=== PATIENT | female | born 1940 | race African-American/Black ===

== ENCOUNTER 2017-05-29 18:19 | Emergency (ER) | payer OTHER, MEDICARE ==
[2017-05-29 18:51] LABS: ADD MAN DIFF? NO
[2017-05-29 18:55] LABS: BASO # 0.1 x10^3/uL (0.0-0.2); BASO % 1 % (0-3); EOS % 2 % (0-3); HEMATOCRIT 41.7 % (36.0-47.0); HEMOGLOBIN 13.5 g/dL (12.0-15.5); LYMPH # 2.4 x10^3/uL (1.0-4.8); LYMPH % 24 % (24-48); MEAN CORPUSCULAR HEMOGLOBIN 28 pg (25-35); MEAN CORPUSCULAR HGB CONC 32 g/dL (31-37); MEAN CORPUSCULAR VOLUME 87 fL (79-100); MONO % 5 % (0-9); NEUT % 69 % (31-73); PLATELET COUNT 276 x10^3/uL (140-400); RED CELL DISTRIBUTION WIDTH 14.8 % (11.5-14.5); WHITE BLOOD COUNT 10.1 x10^3/uL (4.0-11.0)
[2017-05-29] MEDS: LIDO:MAALOX:DONNATAL 1:1:1 15 ML SINGLE DOSE SWSW (18:56)
[2017-05-29 19:40] LABS: ANION GAP 13 (6-14); BLOOD UREA NITROGEN 15 mg/dL (7-20); BUN/CREATININE RATIO 21 (6-20); CALCIUM 8.5 mg/dL (8.5-10.1); CARBON DIOXIDE 24 mmol/L (21-32); CHLORIDE 109 mmol/L (98-107); CREATININE 0.7 mg/dL (0.6-1.0); GFR 98.7; GLUCOSE 109 mg/dL (70-99); POTASSIUM 3.9 mmol/L (3.5-5.1); SODIUM 146 mmol/L (136-145)
[2017-05-29 19:46] LABS: ALBUMIN 3.5 g/dL (3.4-5.0); ALK PHOS 85 U/L (46-116); ALT (SGPT) 13 U/L (14-59); AST (SGOT) 22 U/L (15-37); TOTAL BILIRUBIN 0.5 mg/dL (0.2-1.0)
[2017-05-29 19:48] LABS: TROPONINI < 0.017 ng/mL (0.000-0.055)
== END 2017-05-29 20:22 | disposition home or self-care (01) ==
LOC: ER 18:19
DX: R14.2 Eructation (principal); Z90.49 Acquired absence of other specified parts of digestive tract; M19.90 Unspecified osteoarthritis, unspecified site
CPT/HCPCS: 80053; 83690; 84484; 85025; 93005; 99285-25

== ENCOUNTER → 2017-10-11 | Outpatient (CLI) | payer OTHER, MEDICARE | END | disposition home or self-care (01) | LOC: PNCL 10:04 | DX: M16.11 Unilateral primary osteoarthritis, right hip (principal); M46.1 Sacroiliitis, not elsewhere classified; I10 Essential (primary) hypertension | CPT/HCPCS: 99214 ==

== ENCOUNTER → 2017-10-25 | Outpatient (CLI) | payer OTHER, MEDICARE ==
[~2017-10-25] MED LIST: BUPIVACAINE MPF 0.25% 10 ML VIAL.; IOHEXOL 180 MG/ML 10 ML VIAL.; LIDOCAINE 1% PF 2 ML VIAL.; methylPREDNISolone ACETATE 80 MG/ML VIAL.
== END | disposition home or self-care (01) ==
LOC: PNCL 08:52
DX: M46.1 Sacroiliitis, not elsewhere classified (principal); M16.11 Unilateral primary osteoarthritis, right hip
CPT/HCPCS: 27096; 77002; G0260; J1040; J3490; Q9965

== ENCOUNTER → 2018-07-16 | Outpatient (CLI) | payer MEDICARE, OTHER ==
[2017-08-03 15:00] VITALS: BP 111/48
[~2018-07-16] MED LIST changes: +ACET500T68 PO; +AMLO10TA8 PO; +AMLO5TAB10 PO; +BISO1TAB44 PO; +BISO1TAB7 PO; -BUPIVACAINE MPF 0.25% 10 ML VIAL.; +CHOL100013 PO; +IBUP200C9 PO; -IOHEXOL 180 MG/ML 10 ML VIAL.; -LIDOCAINE 1% PF 2 ML VIAL.; +OXYC5CAP PO; +WARF3TAB50 PO; -methylPREDNISolone ACETATE 80 MG/ML VIAL.
--- NOTE | 2018-07-16 12:16 | PAIN ---
DATE OF SERVICE: 07/16/2018 PROGRESS NOTE FOR PAIN CLINIC DIAGNOSES: 1. Bilateral sacroiliitis. 2. Right hip joint pain with primary osteoarthritis. HISTORY OF PRESENT ILLNESS: The patient is a 78-year-old female who returns for followup status post left-sided sacroiliac joint injection on 10/25/2017. The patient did very well with near 100% improvement, which is maintained to this day. The patient reports the right side; however, is becoming very painful, very similar to the left side, tender with walking, standing, change in positions, sitting for prolonged periods, awakens her from sleep at night about every 5-6 hours, but not every night. The patient reports initially she is doing very well. She is walking greater distances, doing activities at home as well as traveling and household activities with much greater ease and comfort. The patient reports that over the past month or so, the pain began to return in the low back, but on the right side radiating to the posterior gluteus very minorly. The patient reports no radiation to the lower extremity significantly, rates her pain as 8 on a scale of 10 at its worst, 7 on average, 5 at its least and is aching and tight pain on the right side, which is described as tender. The patient notes this is most when she is getting up from a seated position to standing and also from standing to sitting. The patient reports again it occasionally wakens her from sleep, but not every night. The patient reports no new motor or sensory deficits, no bowel or bladder incontinence or other complaints. PHYSICAL EXAMINATION: VITAL SIGNS: The patient's blood pressure 143/84, pulse 83, respirations are 18, temperature is 98.1 degrees Fahrenheit, weight is 146 pounds. GENERAL: The patient is awake, alert, oriented, appropriate, very pleasant demeanor. HEENT: Head shows normocephalic, atraumatic. The patient wears eyeglasses. Extraocular movements are intact and symmetrical. Oral cavity: Mucous membranes moist and pink. Dentition is intact. NECK: Shows anterior throat supple without palpable lymphadenopathy noted. Swallow reflex is symmetrical. CHEST: Shows normal with inspection. Breath sounds clear to auscultation bilaterally. HEART: Shows S1, S2 clear. No murmurs auscultated. ABDOMEN: Soft, nontender, nondistended. No palpable organomegaly is noted. No rebound or guarding demonstrated. BACK: The patient's back shows spine grossly in the midline, normal appearing thoracic kyphosis and some minor flattening of lumbar lordotic curvature. Lumbar paraspinous muscle shows symmetrical on inspection, on palpation shows some mild tenderness only diffusely in the lower lumbar distribution. The patient has full rotational motion of lumbar spine both laterally as well as extension and flexion without difficulty or pain reported. The patient's spinous processes are nontender with palpation. On palpation over the sacroiliac regions, the left side is nontender. The right side; however, is significantly tender with palpation over the posterior superior iliac spine as well as inferior to this into the sacroiliac region on the right side with very tender pain with deep palpation without radiation. EXTREMITIES: Lower extremities show deep tendon reflexes at 1+ in the patellar and tendo calcaneus tendons. Motor exam is 5/5 with dorsiflexion, extension, quadriceps and hamstring flexion. Peripheral pulses are 1+ posterior tibia. No peripheral edema is noted bilaterally. The patient does have a positive Gaenslen's maneuver on the right side with posterior displacement of the leg and external rotation with significant pain in the posterior hip and sacroiliac region. Left side is negative. Kwame's maneuver is mildly positive on the right, but negative on the left as well. PLAN: Options were discussed with the patient. The patient's old chart was reviewed as her current medication regimen updated. Current review of systems updated today as well. We will preauthorize the patient for a right-sided sacroiliac joint injection because of significant pain over the sacroiliac joint as well as positive Gaenslen's sign on the right side. The patient will be given Medrol Dosepak in the meantime. We will wait for preauthorization. Once this is obtained, we will have the patient return in approximately 1 week to plan on right sacroiliac joint injection with fluoroscopic guidance at that time. SZUIE MAJANO MD DR: KESHAWN/liz JOB#: [id number] / [id number]
== END | disposition home or self-care (01) ==
LOC: PNCL 08:53
PROVIDERS: ATTEND Anesthesiology
DX: M16.11 Unilateral primary osteoarthritis, right hip (principal); M46.1 Sacroiliitis, not elsewhere classified
CPT/HCPCS: G0463

== ENCOUNTER → 2018-12-10 | Outpatient (CLI) | payer OTHER, MEDICARE ==
[2017-08-03 15:00] VITALS: BP 111/48
[~2018-12-10] MED LIST changes: -OXYC5CAP PO; -WARF3TAB50 PO
[2018-12-10 09:11] LABS: BILIRUBIN,URINE NEGATIVE (NEG); CLARITY,URINE CLEAR; COLOR,URINE YELLOW; NITRITE,URINE NEGATIVE (NEG); PH,URINE 5.5; PROTEIN,URINE NEGATIVE (NEG-TRACE); UROBILINOGEN,URINE 0.2 mg/dL (0.2 mg/dL)
[2018-12-10 09:19] LABS: BACTERIA,URINE FEW /HPF (0-FEW); RBC,URINE OCC /HPF (0-2); SQUAMOUS EPITHELIAL CELL,UR FEW /LPF; WBC,URINE OCC /HPF (0-4)
[2018-12-10 10:21] LABS: PROTHROMBIN TIME PATIENT 12.6 SEC (11.7-14.0)
--- NOTE | 2018-12-10 14:04 | RAD ---
Chest radiograph 12/10/2018 8:18 AM INDICATION: Hypertension. Preoperative evaluation for placement of the right hip. COMPARISON: August 02, 2017 TECHNIQUE: Frontal and lateral views of the chest are provided. FINDINGS: The cardiomediastinal silhouette is within normal limits. Stable elevation the right hemidiaphragm. Minimal blunting of the left costophrenic angle may represent pleural thickening versus trace pleural effusion, stable. There is no pulmonary vascular congestion. There is no pneumothorax. The lungs are clear. No significant osseous abnormality is identified. IMPRESSION: Persistent elevation the right hemidiaphragm. Lungs are otherwise clear. Blunting of left costophrenic angle may represent pleural thickening versus trace pleural effusion, stable. Electronically signed by: Bonnie Bal MD (12/10/2018 2:01 PM) [id number]
== END | disposition home or self-care (01) ==
LOC: SURGPAT 13:12
PROVIDERS: ATTEND Orthopaedic Surgery
DX: Z01.818 Encounter for other preprocedural examination (principal); M16.11 Unilateral primary osteoarthritis, right hip; I10 Essential (primary) hypertension
CPT/HCPCS: 36415; 71046; 81001; 82306; 85610; 85651; 85730; 87641

== ENCOUNTER 2018-12-25 07:52 | Inpatient (IN) | payer MEDICARE, OTHER ==
[~2018-12-25] VITALS: Ht 160 cm; Wt 64.0 kg
[2018-12-25] VITALS (7 sets, daily range): BP systolic 115–163; BP diastolic 55–75
[~2018-12-25 07:52] MED LIST changes: +ACETAMINOPHEN 500 MG TABLET PO PRN; +HYDROmorphone 2 MG/ML VIAL IV PRN; +IV RINGERS,LACTATED 1000ML 1,000 ML IV SCH; +LIDOCAINE 1% PF 2 ML VIAL. ID PRN; +MORPHINE SULFATE 2 MG/ML VIAL. IV PRN; +MORPHINE SULFATE 5 MG, KETOROLAC 30MG VIAL 30 MG, ROPIVacaine 0.5% PF 60 ML, EPINEPHrin... INT ART ONE; +ONDANSETRON PF 4 MG/2 ML VIAL. IV PRN; +PROCHLORPERAZINE 10 MG/2 ML VIAL. IV PRN; +TRANEXAMIC ACID 1,000 MG in IV NS 50ML -- 1ST BAG INJ ONE; +TV=100ml MORPHINE 5 MG, KETOROLAC 30 MG, ROPIVacaine 0.5% PF 60 ML, EPINEPH... INT ART ONE; +VANCOMYCIN 1GM IVPB FOR OMNI 250 ML IV PRN; +fentaNYL PF VIAL 100 MCG/2 ML VIAL IV PRN
[2018-12-25] MEDS ORDERED: TRANEXAMIC ACID 1,000 MG in IV NS 50ML -- 2ND BAG INJ ONE (08:00)
--- NOTE | 2018-12-25 08:40 | NUR ---
PT STATED SHE COMPLETED THE MRSA PROTOCOL 12/24/18.
[2018-12-25] MEDS: MELOXICAM 7.5 MG TABLET PO PRN ×2 (09:03→15:16)
[2018-12-25 09:22] LABS: PROTHROMBIN TIME PATIENT 13.1 SEC (11.7-14.0)
[2018-12-25] MEDS ORDERED: ROCURONIUM 50 MG/5 ML VIAL. ONE (09:42)
[2018-12-25] MEDS ORDERED: PROPOFOL 20 ML IV ONE (09:43)
[2018-12-25] MEDS ORDERED: LIDOCAINE 2% PF 5 ML VIAL. ONE (09:43)
[2018-12-25] MEDS ORDERED: DEXAMETHASONE SOD PHOS 4 MG/ML VIAL ONE ×2 (09:43)
[2018-12-25] MEDS ORDERED: PHENYLEPHRINE in 0.9% NACL PF 1 MG/10 ML SYRINGE. IV ONE (09:43)
[2018-12-25] MEDS ORDERED: ONDANSETRON PF 4 MG/2 ML VIAL. ONE (09:43)
[2018-12-25] MEDS ORDERED: SEVOFLURANE 61 TO 120 MINUTES. IH ONE (09:43)
[2018-12-25] MEDS ORDERED: fentaNYL PF VIAL 100 MCG/2 ML VIAL ONE (10:27)
--- NOTE | 2018-12-25 11:31 | HP ---
ADMIT DATE: 12/25/2018 CHIEF COMPLAINT: Right hip pain and DJD. HISTORY OF PRESENT ILLNESS: The patient has had right groin and thigh pain many months in duration, severely affecting her activities of daily living and some leg pain that resolved with an injection at the Pain Clinic; however, her hip continues to be very severely limiting for her. PAST MEDICAL HISTORY: Hypertension. SURGICAL HISTORY: Appendectomy and tubal ligation. FAMILY HISTORY: No family history noted. SOCIAL HISTORY: Denies smoking, alcohol or drug use. MEDICATIONS: Include vitamin D, Ziac, amlodipine and Cavour. ALLERGIES: She has no known drug allergies. REVIEW OF SYSTEMS: No recent health problems since her last clinic visit. She denies specifically any chest pain, shortness of breath, fever, chills, focal weakness, numbness, tingling, radiating pain, weight loss or change in bowel or bladder habits. PHYSICAL EXAMINATION: VITAL SIGNS: Per admission sheet. HEENT: Atraumatic, normocephalic. HEART: Regular rate and rhythm. LUNGS: Clear to auscultation bilaterally. ABDOMEN: Benign. EXTREMITIES: Examination of the right hip reveals decreased range of motion in all planes and pain on extremes of motion of the hip on the leg length discrepancy or instability. Minimal tenderness over the trochanteric bursa. Normal examination of the contralateral hip, bilateral knees and ankles. IMAGING STUDIES: Include AP pelvis x-rays of right hip, which show [id number] degenerative change in the right hip. ASSESSMENT: Right hip pain and osteoarthritis. TREATMENT PLAN: I previously discussed with her the x-ray findings. She has been unresponsive to nonoperative management including walking with a cane and limiting her activities. She wishes to pursue more definitive treatment to get back her desired activity level. We had previously discussed and reviewed today; risks, benefits, postoperative course and recovery of a total hip arthroplasty including the possibility of infection, instability, leg length inequality, nerve or blood vessel damage, continued pain, medical or other anesthetic complications among others including weakness. She wishes to proceed with total hip arthroplasty, which includes a [facility] admission to follow. CARMELO COVARRUBIAS MD DR: CLIFF/liz JOB#: [id number] / [id number]
[2018-12-25] MEDS ORDERED: GLYCOPYRROLATE 1 MG/5 ML VIAL. ONE (12:08)
[2018-12-25] MEDS ORDERED: NEOSTIGMINE METHYLSULFATE 5 MG/5 ML SYRINGE. ONE (12:08)
[2018-12-25] MEDS ORDERED: ZOLPIDEM 5 MG TABLET. PO PRN (12:45)
[2018-12-25] MEDS ORDERED: 0.9 % SODIUM CHLORIDE 10 ML DISP.SYRIN. IV PRN (12:45)
[2018-12-25] MEDS ORDERED: DEXTROSE 50% 25 GM / 50ML DISP.SYRIN. IV PRN (12:45)
[2018-12-25] MEDS ORDERED: MORPHINE SULFATE 2 MG/ML VIAL. IV PRN (12:45)
[2018-12-25] MEDS ORDERED: PROCHLORPERAZINE 5 MG TABLET. PO PRN (12:45)
[2018-12-25] MEDS ORDERED: diphenhydrAMINE 50 MG/ML VIAL IV PRN (12:45)
[2018-12-25] MEDS ORDERED: CALCIUM CARBONATE 500 MG TAB.CHEW PO PRN (12:45)
[2018-12-25] MEDS ORDERED: fentaNYL PF VIAL 100 MCG/2 ML VIAL IV PRN (12:45)
--- NOTE | 2018-12-25 12:50 | PDOC4 ---
Operative Note Operative Note Date of surgery: 12/25/2018 Preoperative diagnosis: Degenerative joint disease right hip Postoperative diagnosis: Same Operative procedure: Right total hip arthroplasty Surgeon: Juaquin Assist: Mary Anesthesia: Gen. Estimated blood loss: 200 mL Complications: None Specimens: Femoral head to pathology Drains: Hemovac drain and intra-articular catheter Operative indications: Please see my detailed history and physical note from today for detailed operative indications and indicate that we also reviewed the possibility of leg length discrepancy fracture nerve or blood vessel damage instability premature wear or loosening continued pain medical or other anesthetic consultations among others she agrees to proceed with surgical evaluation and treatment Operative procedure: Patient was identified procedure verified patient placed in the supine position on the operating table. After adequate amounts of general anesthesia were administered she was placed in the decubitus position right side up all bony prominences were well padded and stabilized with the Stulberg hip positioner. The right hip was then prepped and draped in standard sterile fashion. After timeout was performed patient procedure identified and verified a curvilinear incision was made over the greater trochanter consisting of a posterior approach to the hip iliotibial band and gluteal fascia were divided in line with their fibers Charnley retractor was placed external rotators were d ivided at their insertion and hip capsule was split in a T fashion. Hip was dislocated and femoral neck cut was made with the assistance of the alignment guide femoral head was noted to be severely arthritic no cartilage noted on the femoral head or acetabulum femoral head was sized at approximately a size 52. Labrum was excised no soft tissue noted and no foveal space was remaining. Successive size reaming carried out up to a size 48 the rim was touched with a size 49 and a size 53 hole hemispherical coated sticktight cup was impacted into place in proper version a single screw was placed superiorly with excellent bite and a standard 32 mm polyethylene liner was impacted into place the femur was then drilled and broached with a size 12 standard offset broach selected and initially a +0 head trial fit which gave excellent stability nondenominational of leg length and offset. Trial components were removed thorough irrigation carried out normal saline solution with pulse lavage and a size 12 standard offset synergy p orous coated stem was impacted into place in proper version based on the positioning of the implant trialing was carried out with a +4 which again gave full range of motion excellent stability and offset and stability noted to about 60 external rotation at 90 hip flexion trial head was removed and a cobalt- chromium 32 mm +4 head was impacted into place to engage the Torre taper hip was reduced hip capsule repaired with #2 Choudhury suture Hemovac drain and pain catheter were placed pain catheter mixture was injected throughout the joint capsule and iliotibial band and gluteal fascia were closed with Ethibond suture and reinforced with running #1 PDS strata fix subcutaneous closure with buried Vicryl suture subcuticular closure with 3-0 Monocryl strata fix area gaby dressing was placed patient was returned to recovery room in stable condition having tolerated procedure well. Mary lamassistant tennis professional was present for the procedure and was present for the prepping draping assisted in retraction and skin closure CARMELO COVARRUBIAS MD Dec 25, 2018 12:50
[2018-12-25] MEDS: fentaNYL PF VIAL 100 MCG/2 ML VIAL IV PRN ×2 (12:52→13:45)
--- NOTE | 2018-12-25 13:29 | RAD ---
Examination: HIP RIGHT 1 VIEW WITH PELVIS History: Postoperative Comparison/Correlation: None Findings: Frontal view pelvis was obtained by portable technique crosstable portable lateral view of the right hip was obtained. Patient has a tubing is noted at the lateral aspect of the proximal right femur with soft tissues. Right hip joint prosthesis is intact with no loosening. Soft tissue swelling and gas noted lateral to the right hip in this postoperative patient. Impression: Right total hip joint arthroplasty is intact. Postoperative findings. No acute fracture. Electronically signed by: Mike Diez MD (12/25/2018 1:26 PM) [id number]
[2018-12-25] MEDS ORDERED: IV NORMAL SALINE 1000ML BAG 1,000 ML IV SCH (15:00)
--- NOTE | 2018-12-25 15:18 | NUR ---
1425 Received from PACU per bed, alert/oriented, dressing to right hip clean, dry & intact, MONET dressing, IAC, Hemovac in place, bilateral CLEMENTE hose & SCD in place, states uncomfortable but denied pain, repositioned in bed, offered to get up in chair but declined, HOB elevated, pillow placed in between legs, oriented to surroundings, call light in reach, side rails up x2, see assessment, family at bedside
[2018-12-25] MEDS: ACETAMINOPHEN 500 MG TABLET PO SCH ×2 (15:24→21:05)
[2018-12-25] MEDS: amLODIPine BESYLATE 5 MG TABLET PO SCH (16:00)
[2018-12-25] MEDS ORDERED: WARFARIN 7.5 MG TABLET. PO ONE (16:00)
[2018-12-25] MEDS: FERROUS SULFATE 325 MG TABLET. PO SCH (16:44)
[2018-12-25] MEDS: CHOLECALCIFEROL (VITAMIN D3) 1,000 UNIT TABLET PO SCH (16:45)
[2018-12-25] MEDS: ONDANSETRON PF 4 MG/2 ML VIAL. IV SCH (17:56)
[2018-12-25] MEDS: ONDANSETRON ODT 4 MG TAB.RAPDIS. PO SCH (17:56)
--- NOTE | 2018-12-25 17:56 | NUR ---
Zofran held, no nausea or vomiting noted
[2018-12-25] MEDS: traMADol 50 MG TABLET PO SCH (18:29)
[2018-12-25] MEDS: KETOROLAC 30MG VIAL 30 MG, BUPIVACAINE MPF 0.25% 20 ML, EPINEPHrine 0.5 MG in TOTAL VOL... INT ART SCH (18:31)
[2018-12-25] MEDS: GABAPENTIN 100 MG CAPSULE. PO SCH (21:05)
[2018-12-25] MEDS ORDERED: VANCOMYCIN 1 GM in IV NORMAL SALINE 250ML 250 ML IV ONE (23:00)
--- NOTE | 2018-12-26 | NUR ---
Patient denies nausea, no vomiting noted, Patient denies pain. Patient refusing tramadol and Zofran.
[2018-12-26] MEDS: ACETAMINOPHEN 500 MG TABLET PO SCH ×4 (02:10→20:56)
--- NOTE | 2018-12-26 02:20 | NUR ---
Patient denies pain. Refusing scheduled 0300 Tylenol. Offered patient to use restroom. Patient refused. Patient states "I don't have to ho, I'll go at 0530."
[2018-12-26 02:22] VITALS: BP 113/70
[2018-12-26 04:07] LABS: HEMATOCRIT 31.7 % (36.0-47.0); HEMOGLOBIN 10.3 g/dL (12.0-15.5)
[2018-12-26 04:19] LABS: PROTHROMBIN TIME PATIENT 15.3 SEC (11.7-14.0)
[2018-12-26] MEDS: KETOROLAC 30MG VIAL 30 MG, BUPIVACAINE MPF 0.25% 20 ML, EPINEPHrine 0.5 MG in TOTAL VOL... INT ART SCH (05:48)
[2018-12-26] MEDS: traMADol 50 MG TABLET PO SCH ×5 (05:48→23:48)
[2018-12-26] MEDS: ONDANSETRON PF 4 MG/2 ML VIAL. IV SCH ×3 (05:49→12:00)
[2018-12-26] MEDS: ONDANSETRON ODT 4 MG TAB.RAPDIS. PO SCH ×3 (05:49→12:00)
[2018-12-26] MEDS ORDERED: MAGNESIUM HYDROXIDE 2,400 MG/30 ML ORAL.SUSP. PO PRN (06:00)
[2018-12-26 06:35] VITALS: BP 97/43
--- NOTE | 2018-12-26 07:24 | PDOC ---
ORTHO PROGRESS NOTES Subjective Patient sitting up in chair at bedside with no complaint of pain. Post-op Day: 1 Procedure R FREEMAN Vitals Vital Signs Date Time Temp Pulse Resp B/P (MAP) Pulse Ox O2 Delivery O2 Flow Rate FiO2 12/26/18 06:50 Room Air 12/26/18 06:35 98.1 71 18 97/43 (61) 95 98.1 12/25/18 17:55 2.0 Labs Laboratory Tests Test 12/25/18 08:30 12/26/18 03:30 Prothrombin Time 13.1 SEC (11.7-14.0) 15.3 SEC (11.7-14.0) Prothromb Time International Ratio 1.0 (0.8-1.1) 1.2 (0.8-1.1) Activated Partial Thromboplast Time 30 SEC (24-38) Hemoglobin 10.3 g/dL (12.0-15.5) Hematocrit 31.7 % (36.0-47.0) Mean Corpuscular Hemoglobin Concent 33 g/dL (31-37) Laboratory Tests Test 12/25/18 08:30 12/26/18 03:30 Prothrombin Time 13.1 SEC (11.7-14.0) 15.3 SEC (11.7-14.0) Prothromb Time International Ratio 1.0 (0.8-1.1) 1.2 (0.8-1.1) Activated Partial Thromboplast Time 30 SEC (24-38) Hemoglobin 10.3 g/dL (12.0-15.5) Hematocrit 31.7 % (36.0-47.0) Mean Corpuscular Hemoglobin Concent 33 g/dL (31-37) Notes awake and alert Assessment and Plan POD # 1 S/P R FREEMAN moving toes and feet without restriction motor and sensory intact distally dressing dry and intact calf soft and nontender begin PT today RUSTAM MESSER APRN Dec 26, 2018 07:24
[2018-12-26 08:00] VITALS: BP 94/47
[2018-12-26] MEDS: FERROUS SULFATE 325 MG TABLET. PO SCH ×2 (08:04→17:19)
[2018-12-26] MEDS: MULTIVITAMIN with MINERAL TABLET. PO SCH (08:05)
[2018-12-26] MEDS: SENNOSIDES/DOCUSATE 8.6/50MG TABLET. PO SCH (08:05)
[2018-12-26] MEDS: CHOLECALCIFEROL (VITAMIN D3) 1,000 UNIT TABLET PO SCH (08:05)
[2018-12-26] MEDS: GABAPENTIN 100 MG CAPSULE. PO SCH ×2 (08:10→21:00)
[2018-12-26] MEDS: amLODIPine BESYLATE 5 MG TABLET PO SCH (09:00)
--- NOTE | 2018-12-26 10:29 | NUR ---
Pharmacy Warfarin Dosing Note S:Pharmacy consulted to assist with anticoagulation therapy started 12/25/18 with target INR: 1.6 - 2.5 O:EULA CHAVEZ is a 78 year old F with FREEMAN LABS: Last INR: 1.2 Last HGB: 10.3 Last HCT: Last PLT: Last dose of 7.5 mg given on 12/25/18 at 1700 Previous Regimen: Vitamin K given: Drug Interaction Changes: Ongoing Drug Interactions: A:INR of 1.2 is below desired range. Target range for this patient is: 1.6 - 2.5 P: Warfarin dose: 5 mg Today at 1600 Bridge Therapy: Next INR due IN AM Pharmacy anticoagulation service will continue to follow. JULIANA GARDNER RPH, 12/26/18 [id number]
[2018-12-26 11:00] VITALS: BP 105/57
[2018-12-26] MEDS ORDERED: ONDANSETRON ODT 4 MG TAB.RAPDIS. PO PRN (12:00)
[2018-12-26] MEDS ORDERED: ONDANSETRON PF 4 MG/2 ML VIAL. IV PRN (12:00)
[2018-12-26 15:00] VITALS: BP 116/60
[2018-12-26] MEDS ORDERED: BISACODYL 10 MG SUPP.RECT. PR PRN (16:00)
[2018-12-26] MEDS ORDERED: WARFARIN 5 MG TABLET. PO ONE (16:00)
[2018-12-26 18:30] VITALS: BP 98/50
[2018-12-27] MEDS: ACETAMINOPHEN 500 MG TABLET PO SCH ×4 (02:51→21:00)
[2018-12-27] MEDS: traMADol 50 MG TABLET PO SCH ×3 (05:50→17:31)
[2018-12-27 06:03] VITALS: BP 114/55
[2018-12-27 06:10] LABS: HEMATOCRIT 29.4 % (36.0-47.0); HEMOGLOBIN 9.8 g/dL (12.0-15.5)
[2018-12-27 06:19] LABS: PROTHROMBIN TIME PATIENT 20.2 SEC (11.7-14.0)
[2018-12-27] MEDS: FERROUS SULFATE 325 MG TABLET. PO SCH ×2 (08:31→17:31)
[2018-12-27] MEDS: SENNOSIDES/DOCUSATE 8.6/50MG TABLET. PO SCH (08:31)
[2018-12-27] MEDS: MULTIVITAMIN with MINERAL TABLET. PO SCH (08:31)
[2018-12-27] MEDS: CHOLECALCIFEROL (VITAMIN D3) 1,000 UNIT TABLET PO SCH (08:31)
[2018-12-27] MEDS: GABAPENTIN 100 MG CAPSULE. PO SCH ×2 (08:33→20:52)
[2018-12-27] MEDS: amLODIPine BESYLATE 5 MG TABLET PO SCH (09:00)
--- NOTE | 2018-12-27 09:36 | NUR ---
am care completed. states that she is more painful this am; "stiff" she remains normotensive; norvasc held at this time. will recheck blood pressure.
[2018-12-27] MEDS: oxyCODONE IR 5 MG TABLET PO PRN ×2 (10:15→20:54)
[2018-12-27 11:21] VITALS: BP 93/40
--- NOTE | 2018-12-27 11:47 | PDOC ---
PROGRESS NOTES Subjective Subjective Problems overnight: Doing much better than before surgery minimal pain some soreness in the hip as expected no other complaints Objective Vital Signs Vital Signs Date Time Temp Pulse Resp B/P (MAP) Pulse Ox O2 Delivery O2 Flow Rate FiO2 12/27/18 11:21 98.0 83 16 93/40 (57) 96 Room Air 98.0 12/25/18 17:55 2.0 Physical Exam Timmy dressing clean dry and intact leg lengths equal distal neurovascular status intact good stability Labs Laboratory Tests Test 12/26/18 03:30 12/27/18 05:33 Hemoglobin 10.3 g/dL (12.0-15.5) 9.8 g/dL (12.0-15.5) Hematocrit 31.7 % (36.0-47.0) 29.4 % (36.0-47.0) Mean Corpuscular Hemoglobin Concent 33 g/dL (31-37) 33 g/dL (31-37) Prothrombin Time 15.3 SEC (11.7-14.0) 20.2 SEC (11.7-14.0) Prothromb Time International Ratio 1.2 (0.8-1.1) 1.8 (0.8-1.1) Laboratory Tests Test 12/27/18 05:33 Hemoglobin 9.8 g/dL (12.0-15.5) Hematocrit 29.4 % (36.0-47.0) Mean Corpuscular Hemoglobin Concent 33 g/dL (31-37) Prothrombin Time 20.2 SEC (11.7-14.0) Prothromb Time International Ratio 1.8 (0.8-1.1) Imaging Postop images right hip show well-placed total hip arthroplasty Assessment Assessment POD# [2], S/P [right total hip arthroplasty] Plan Plan of Care Continue mobilize as tolerated weightbearing as tolerated standard total hip precautions Coumadin anticoagulation, anticipate likely home with home health tomorrow CARMELO COVARRUBIAS MD Dec 27, 2018 11:47
--- NOTE | 2018-12-27 11:56 | NUR ---
Pharmacy Warfarin Dosing Note S:Pharmacy consulted to assist with anticoagulation therapy started 12/25/18 with target INR: 1.6 - 2.5 O:EULA CHAVEZ is a 78 year old F with FREEMAN LABS: Last INR: 1.8 Last HGB: 9.8 Last HCT: 29.0 Last PLT: Last dose of 5 mg given on 12/26/18 at 1700 Previous Regimen: Vitamin K given: Drug Interaction Changes: Ongoing Drug Interactions: A:INR of 1.8 is within desired range. Target range for this patient is: 1.6 - 2.5 P: Warfarin dose: 3 mg Today at 1600 Bridge Therapy: Next INR due IN AM Pharmacy anticoagulation service will continue to follow. JULIANA GARDNER RPH, 12/27/18 [id number]
--- NOTE | 2018-12-27 15:16 | NUR ---
violette tolerated both rehab sessions well. she has rated her pain 3-4. she is on oral medications and tolerating well.
[2018-12-27] MEDS ORDERED: WARFARIN 3 MG TABLET. PO ONE (16:00)
[2018-12-27 18:37] VITALS: BP 105/55
[2018-12-28] MEDS: traMADol 50 MG TABLET PO SCH ×3 (00:07→12:00)
[2018-12-28] MEDS: ACETAMINOPHEN 500 MG TABLET PO SCH ×4 (03:00→13:21)
[2018-12-28] MEDS: oxyCODONE IR 5 MG TABLET PO PRN ×4 (04:45→15:41)
[2018-12-28 05:25] VITALS: BP 147/70
[2018-12-28] MEDS: GABAPENTIN 100 MG CAPSULE. PO SCH (08:27)
[2018-12-28] MEDS: SENNOSIDES/DOCUSATE 8.6/50MG TABLET. PO SCH (08:27)
[2018-12-28] MEDS: CHOLECALCIFEROL (VITAMIN D3) 1,000 UNIT TABLET PO SCH (08:27)
[2018-12-28] MEDS: FERROUS SULFATE 325 MG TABLET. PO SCH (08:27)
[2018-12-28] MEDS: MULTIVITAMIN with MINERAL TABLET. PO SCH (08:27)
[2018-12-28 08:28] VITALS: BP 97/55
[2018-12-28 08:44] LABS: HEMATOCRIT 30.8 % (36.0-47.0); HEMOGLOBIN 10.1 g/dL (12.0-15.5)
[2018-12-28 08:59] LABS: PROTHROMBIN TIME PATIENT 20.2 SEC (11.7-14.0)
[2018-12-28] MEDS: amLODIPine BESYLATE 5 MG TABLET PO SCH (09:00)
[2018-12-28 11:00] VITALS: BP 96/51
[2018-12-28] MEDS ORDERED: WARF3TAB50 PO (11:05)
--- NOTE | 2018-12-28 11:06 | NUR ---
Pharmacy Warfarin Dosing Note S:Pharmacy consulted to assist with anticoagulation therapy started 12/25/18 with target INR: 1.6 - 2.5 O:EULA CHAVEZ is a 78 year old F with FREEMAN LABS: Last INR: 1.8 Last HGB: 10.1 Last HCT: 30.8 Last PLT: Last dose of 3 mg given on 12/27/18 at 1700 Previous Regimen: Vitamin K given: Drug Interaction Changes: Ongoing Drug Interactions: A:INR of 1.8 is within desired range. Target range for this patient is: 1.6 - 2.5 P: Warfarin dose: 3 mg Prior to Discharge Bridge Therapy: NONE Next INR due 12/31 (MONDAY) PER [facility] SERV[facility] Pharmacy anticoagulation service will continue to follow. JACINTA CARMICHAEL [facility], 12/28/18 [id number]
--- NOTE | 2018-12-28 11:29 | NUR ---
reviewed orally discharge instructions restrictions to activities of daily living such as bathing incisional care follow up and reviewed medications. care of Luis Enrique
[2018-12-28] MEDS ORDERED: OXYC5CAP PO (13:10)
--- NOTE | 2018-12-28 13:11 | SNU/HH DC ---
DISCHARGE WITH HOME HEALTH DISCHARGE INFORMATION: Final Diagnosis: Problems Medical Problems: (1) HTN (hypertension) Status: Chronic (2) Osteoarthritis Status: Chronic (3) Right hip pain Status: Chronic Surgical Problems: (1) S/P total hip arthroplasty Status: Acute Condition on Discharge: Stable CODE STATUS: Code Status: Full HOME HEALTH: Face to Face: I certify this patient is under my care and that I, or a nurse practitioner or physician's advertising assistant working with me, had a face to face encounter that meets the physician face to face encounter requirements with this patient on [12/28/2018]. RN For Eval/Treatment: Yes Physical Therapy For: Evalulation/Treatment Pt Meets Homebound Status: Limited distance walking POST DISCHARGE ORDERS: Activity Instructions for Disc: Walk in house Weight Bearing Status after Di: Full weight bearing, As tolerated, Other, see below Bathing Instructions: Shower-keep dressing dry Wound/Incision Care: Ice to area for comfort, Keep wound/cast CDI, Keep wound elevated, Do not change dressing Other wound/incision instructi: remove battery pack on monday 01/01 unscrew tubing and taping down CHECKS AFTER DISCHARGE: Checks after discharge: Check blood press - daily Comment: PT/INR to be drawn every Monday starting 12/31 01/07 FOLLOW-UP: Follow Up With: call [phone] for a [address] Reza Warfarin Follow UP: [place] [facility] to manage and monitor coumadin ??? [phone] TREATMENT/EQUIPMENT ORDERS: Adaptive Equipment Issued: Front wheeled walker CERTIFICATION STATEMENT: Certification Statement: Certification Statement: Based on the above finding, I certify that this patient is confined to the home and needs intermittent assisted care, physical therapy and/or speech therapy, or continues to need occupational therapy.~ This patient is under my care, and I have initiated the establishment of the plan of care.~ This patient will be followed by myself or a community physician who will periodically review the plan of care. Home Meds Reported Medications Warfarin Sodium (WARFARIN SODIUM) 3 Mg Tablet, 3 MG PO DAILY for blood thinner, #45 TAB 0 Refills 12/28/18 Acetaminophen (ACETAMINOPHEN) 500 Mg Tablet, 1000 MG PO BID for HIP PAIN, TAB 12/10/18 Amlodipine Besylate (AMLODIPINE BESYLATE) 5 Mg Tablet, 5 MG PO DAILY for htn, TAB 07/16/18 Cholecalciferol (Vitamin D3) (VITAMIN D) 1,000 Unit Capsule, 500 UNITS PO DAILY for SUPPLEMENT, #30 CAP 3 Refills 10/11/17 CARMELO REZA MD Dec 28, 2018 13:11
[2018-12-28] MEDS ORDERED: WARFARIN 3 MG TABLET. PO ONE (14:00)
--- NOTE | 2018-12-28 16:00 | NUR ---
reviewed written discharge instructions with patient. reviewed MONET dressing care, lab draws, medications especially her blood pressure med and pain medication. she verbalized understanding of these. was able to recite her hip precautions. she is going home with Alexandr. angie dcd.
--- NOTE | 2018-12-28 18:06 | PATHOLOGY ---
[facility] Accession Number: [id number] . 01 Material submitted: . hip - RIGHT HIP BONE. Modifiers: right . 01 Clinical history: . Right hip DJD . 02 Diagnosis: Femoral head with attached portion of femoral neck and soft tissue, and separate segment of bone, right total hip arthroplasty: - Advanced degenerative arthritis. . (JPM:mml; 12/28/2018) QL/12/28/2018 . 02 Electronically signed: . Umang Cruz MD, Pathologist NPI- [id number] . 01 Gross description: . Received in formalin, labeled" Nik Bonilla, right hip bone ", is a femoral head (3.7 cm diameter x 3.4 cm height) and with femoral neck (1.0 cm length and 3.2 cm maximum diameter). The articular surface is markedly pitted, pizarro and granular with the cartilage measuring up to 0.2 cm thick. Extensive eburnation and peripheral osteophytes are present. The soft tissue is shaggy and pizarro-pink soft tissue with no synovial villi. The subchondral bone is yellow, with porous bony trabeculae. No cysts are identified. The margin of excision is smooth and the exposed trabecular bone is spongy and yellow and is inked blue. Also received is an irregular fragment of dark brown friable bone measuring 2.0 x 1.2 x 0.8 cm. Desktop Support Engineer sections are submitted in A1 (femoral head) and A2 (additional bone fragment) after decalcification. ([facility];12/26/2018) SHS/SHS . 02 Pathologist provided ICD-10: M16.11 . 02 CPT . 631905, [id number] Specimen Comment: A courtesy copy of this report has been sent to Specimen Comment: [phone], , . Specimen Comment: Report sent to ,DR MARSH / DR MIKE Performed at: [address], [place] [id number] MD Kana Thacker MD Phone: [phone] Performed at: 02 [facility] [address] [place], [place] [id number] MD Umang Cruz MD Phone: [phone]
--- NOTE | 2018-12-29 01:50 | DS ---
DATE OF DISCHARGE: 12/28/2018 PRINCIPAL DIAGNOSIS: Degenerative joint disease of right hip. PROCEDURE: Right total hip arthroplasty. DISPOSITION: Home with home health. FOLLOWUP: Dr. Reza in 2 weeks. DISPOSITION MEDICATIONS: Oxycodone 5 mg p.o. q. 4 hours p.r.n. pain, Coumadin as directed by anticoagulation clinic, resume preoperative medications with the exception of naproxen. ACTIVITY: Weightbearing as tolerated, standard total hip precautions. Avoid flexion past 90 degrees or internal rotation with right hip. Maintain MONET dressing. Remove when suction stops working. May tape over or call if dressing becomes saturated or she experiences redness, drainage, fever, chills, or uncontrolled pain or other problems. BRIEF DESCRIPTION OF HOSPITAL COURSE: The patient underwent an uncomplicated right total hip arthroplasty and postoperatively remained medically stable and indicated good pain relief. She got around well with physical therapy aside from some weakness with ambulation and transfers on the right hip. Otherwise, very pleased with her progress and she was discharged home with home health followup in stable condition. CARMELO REZA MD DR: CLIFF/liz JOB#: [id number] / [id number]
== END 2018-12-28 16:40 | disposition home health service (06) | DRG 470 ==
LOC: OPSVCIP 07:52 → 4 SOUTHEST 14:20
PROVIDERS: ADMIT Orthopaedic Surgery; ATTEND Orthopaedic Surgery
PROC: 0SR902Z Replacement of Right Hip Joint with Metal on Polyethylene Synthetic Substitute, Open Approach (ICD-10-PCS; principal; 2018-12-25 10:00)
DX: M16.11 Unilateral primary osteoarthritis, right hip (principal); I10 Essential (primary) hypertension; Z90.49 Acquired absence of other specified parts of digestive tract; Z98.51 Tubal ligation status
CPT/HCPCS: 36415; 73501; 85014; 85018; 85610; 85730; 86850; 86900; 86901; 88304; 88311; J0171; J0780; J1100; J1885; J2001; J2270; J2370; J2405; J2704; J2710; J2795; J3010; J3370; J3490; J7030; J7050; J7120; 97116; 97150; 97530; 97535